=== PATIENT | male | born 1940 | race Caucasian/White ===

== ENCOUNTER 2018-10-30 07:22 | Day surgery (SDC) | payer OTHER, BC ==
[2018-10-29 12:16] VITALS: BMI 24.3
[2018-10-30] MEDS ORDERED: PROPOFOL 20 ML ONE ×2 (08:08)
[2018-10-30] MEDS ORDERED: LIDOCAINE HCL/PF 2% SDV 5ML VIAL ONE (08:29)
[2018-10-30 08:59] VITALS: TEMP 97.8
[2018-10-30 09:26] VITALS: BP 106/52; PULSE 62
--- NOTE | 2018-11-03 13:32 | PATH ---
Surgical Pathology Report Patient Name: MELISSA LANDRUM JR [facility]. Rec. #: [id number] /Age/Gender: 1940 (Age: 78) / M Account: [id number] Location: [facility] Taken: 10/30/2018 Received: 10/30/2018 Reported: 11/03/2018 Physicians: Eder Mcwilliams M.D. Specimen(s) Received A: BX POLYPOID FOLD RIGHT COLON B: BX POLYP SIGMOID COLON Clinical History Change in bowel habits Postoperative diagnosis: Diverticulosis, colon polyps Final Diagnosis A. RIGHT COLON, POLYPOID FOLD, BIOPSY: COLONIC MUCOSA SHOWING MILD SURFACE HYPERPLASTIC CHANGE. B. SIGMOID COLON, POLYP, BIOPSY: HYPERPLASTIC POLYP. Electronically Signed Delia Lennon M.D. Gross Description A. Received in formalin, labeled "biopsy polypoid fold right colon" is a schafer, irregular portion of soft tissue measuring 0.4 cm. in greatest dimension. The specimen is submitted in toto in one cassette. B. Received in formalin, labeled "biopsy polyp sigmoid colon" is a schafer, irregular portion of soft tissue measuring 0.6 cm. in greatest dimension. The specimen is submitted in toto in one cassette. 10/30/2018 saudi10/30/2018
== END 2018-10-30 09:26 | disposition home or self-care (01) ==
LOC: FASU-ENDO 07:22
PROVIDERS: ATTEND Internal Medicine Gastroenterology
PROC: 0DBK8ZX Excision of Ascending Colon, Via Natural or Artificial Opening Endoscopic, Diagnostic (ICD-10-PCS; principal; 2018-10-30 08:31)
PROC: 0DBN8ZX Excision of Sigmoid Colon, Via Natural or Artificial Opening Endoscopic, Diagnostic (ICD-10-PCS; 2018-10-30 08:31)
DX: K63.5 Polyp of colon (principal); K63.89 Other specified diseases of intestine; R19.4 Change in bowel habit; K59.09 Other constipation; K57.30 Diverticulosis of large intestine without perforation or abscess without bleeding
CPT/HCPCS: 88305-TC

== ENCOUNTER 2022-02-02 05:43 | Observation (INO) | payer OTHER, BC ==
[2022-02-02 05:54] VITALS: BMI 25.1
[2022-02-02 07:26] LABS: INR 1.02 (0.83-1.09); PROTHROMBIN TIME (PATIENT) 11.7 SEC (9.7-13.0)
[2022-02-02 07:28] LABS: EOS % 7.2 % (0-4.5); HEMATOCRIT 37.3 % (35.4-49); HEMOGLOBIN 12.8 GM/dL (11.7-16.9); MCH 31.5 pg (25.7-33.7); MCHC 34.2 g/dl (32.0-35.9); MEAN PLT VOLUME 8.8 fl (7.5-11.1); MONO % 8.3 % (3.8-10.2); NEUT % 57.5 % (42.8-82.8); PLATELET COUNT 217 10^3/uL (134-434); RBC 4.05 M/mm3 (4.00-5.60); RDW 13.6 % (11.9-15.9)
[2022-02-02 07:29] LABS: ACTIVATED PTT 29.7 SECONDS (25.2-36.5)
[2022-02-02 07:42] LABS: ALBUMIN 3.7 g/dl (3.4-5.0); CALCIUM 8.6 mg/dL (8.5-10.1)
[2022-02-02 07:43] LABS: BLOOD UREA NITROGEN 17.8 mg/dL (7-18); MAGNESIUM 2.1 mg/dL (1.8-2.4)
[2022-02-02 07:46] LABS: CREATININE 0.9 mg/dL (0.55-1.3)
[2022-02-02 07:47] LABS: BILIRUBIN,TOTAL 0.6 mg/dL (0.2-1); TOT PROT 7.2 g/dl (6.4-8.2)
[2022-02-02 09:27] LABS: PHOSPHOROUS 3.1 mg/dL (2.5-4.9)
[2022-02-02] MEDS ORDERED: ENOXAPARIN NA (PORCINE) 40 MG/0.4 ML DISP.SYRIN SQ SCH (10:00)
[2022-02-02] MEDS ORDERED: METOPROLOL TARTRATE 25 MG TABLET (FP) ONE (12:24)
[2022-02-02] MEDS ORDERED: ISOSORBIDE MONONITRATE 60 MG TAB.SR.24H (FP) PO ONE (12:25)
[2022-02-02] MEDS ORDERED: RAMIPRIL 5 MG CAPSULE ONE (12:25)
[2022-02-02] MEDS ORDERED: CLOPIDOGREL BISULFATE 75 MG TABLET (FP) ONE (12:25)
[2022-02-02] MEDS: METOPROLOL TARTRATE 25 MG TABLET (FP) PO SCH ×2 (12:31→21:45)
[2022-02-02] MEDS: ISOSORBIDE MONONITRATE 60 MG TAB.SR.24H (FP) PO SCH (12:31)
[2022-02-02] MEDS: CLOPIDOGREL BISULFATE 75 MG TABLET (FP) PO SCH (12:32)
[2022-02-02] MEDS: RAMIPRIL 5 MG CAPSULE PO SCH (12:32)
[2022-02-02] MEDS: UMECLIDINIUM/VILANTEROL (ANORO) 62.5/25 MCG INHALER IH SCH (12:32)
[2022-02-02] MEDS: ASPIRIN 81 MG CHEWABLE TABLETS PO SCH (15:08)
[2022-02-02 15:53] VITALS: RESP 18
[2022-02-02] MEDS: CALAMINE 8% TOPICAL LOTION 177 ML BOTTLE TP SCH ×2 (19:35→21:43)
[2022-02-02] MEDS ORDERED: ATORVASTATIN CA 40 MG TABLET (FP) PO SCH (22:00)
[2022-02-03 09:03] LABS: BASO % 1.2 % (0-2.0); HEMATOCRIT 40.3 % (35.4-49); HEMOGLOBIN 13.8 GM/dL (11.7-16.9); LYMPH % 18.9 % (8-40); MCH 31.7 pg (25.7-33.7); MCHC 34.3 g/dl (32.0-35.9); MEAN CELL VOLUME 92.5 fl (80-96); MEAN PLT VOLUME 8.5 fl (7.5-11.1); MONO % 8.2 % (3.8-10.2); NEUT % 67.7 % (42.8-82.8); PLATELET COUNT 219 10^3/uL (134-434); RBC 4.36 M/mm3 (4.00-5.60); WHITE BLOOD COUNT 9.1 K/mm3 (4.0-10.0)
[2022-02-03] MEDS: ISOSORBIDE MONONITRATE 60 MG TAB.SR.24H (FP) PO SCH (09:19)
[2022-02-03] MEDS: ASPIRIN 81 MG CHEWABLE TABLETS PO SCH (09:20)
[2022-02-03] MEDS: METOPROLOL TARTRATE 25 MG TABLET (FP) PO SCH (09:20)
[2022-02-03] MEDS: CALAMINE 8% TOPICAL LOTION 177 ML BOTTLE TP SCH (09:20)
[2022-02-03] MEDS: RAMIPRIL 5 MG CAPSULE PO SCH (09:20)
[2022-02-03] MEDS: CLOPIDOGREL BISULFATE 75 MG TABLET (FP) PO SCH (09:20)
[2022-02-03] MEDS: UMECLIDINIUM/VILANTEROL (ANORO) 62.5/25 MCG INHALER IH SCH (09:26)
[2022-02-03 09:41] LABS: CALCIUM 9.1 mg/dL (8.5-10.1); CHOLESTEROL 155 mg/dL (50-200); TRIGLYCERIDES 145 mg/dL (0-150)
[2022-02-03 09:42] LABS: ALBUMIN 4.2 g/dl (3.4-5.0); BLOOD UREA NITROGEN 12.4 mg/dL (7-18); LDL CHOLESTEROL (ONLY SJRH) 89 mg/dL (5-100); MAGNESIUM 2.2 mg/dL (1.8-2.4)
[2022-02-03 09:44] LABS: CREATININE 0.8 mg/dL (0.55-1.3); HDL CHOLESTEROL 45 mg/dL (40-60); PHOSPHOROUS 2.9 mg/dL (2.5-4.9)
[2022-02-03 09:45] LABS: BILIRUBIN,TOTAL 0.7 mg/dL (0.2-1); TOT PROT 8.2 g/dl (6.4-8.2)
[2022-02-03 15:06] VITALS: BP 116/67; PULSE 67; TEMP 97.7
== END 2022-02-03 17:36 | disposition home or self-care (01) ==
LOC: JER 05:43 → JERBED 07:51 → J4W 14:55
PROVIDERS: ADMIT Internal Medicine; ATTEND Internal Medicine
DX: I25.110 Atherosclerotic heart disease of native coronary artery with unstable angina pectoris (principal); I11.9 Hypertensive heart disease without heart failure; J44.9 Chronic obstructive pulmonary disease, unspecified; Z29.8 Encounter for other specified prophylactic measures; E78.5 Hyperlipidemia, unspecified; Z95.1 Presence of aortocoronary bypass graft; R06.02 Shortness of breath; I71.4 Abdominal aortic aneurysm, without rupture; E78.00 Pure hypercholesterolemia, unspecified; Z98.62 Peripheral vascular angioplasty status; Z87.891 Personal history of nicotine dependence
CPT/HCPCS: 36415; 71045-TC-FY; 80053; 80061; 82550; 83036; 83735; 84100; 84439; 84443; 84484; 85025; 85610; 85730; 93005; 93010; 93306-TC; 99285-25; C9803-CS; G0378; U0003; U0005

== ENCOUNTER 2023-09-10 11:28 | Emergency (ER) | payer OTHER, BC ==
[2023-09-10 11:44] VITALS: BP 128/66; PULSE 71; RESP 18; TEMP 98; BMI 23.6
[2023-09-10 12:54] LABS: BASO % 1.2 % (0-2.0); EOS % 3.7 % (0-4.5); HEMATOCRIT 37.6 % (35.4-49); HEMOGLOBIN 12.7 GM/dL (11.7-16.9); LYMPH % 10.6 % (8-40); MCH 32.2 pg (25.7-33.7); MCHC 33.8 g/dl (32.0-35.9); MEAN CELL VOLUME 95.3 fl (80-96); MEAN PLT VOLUME 8.1 fl (7.5-11.1); MONO % 7.5 % (3.8-10.2); PLATELET COUNT 201 10^3/uL (134-434); RBC 3.95 M/mm3 (4.00-5.60); RDW 14.2 % (11.9-15.9); WHITE BLOOD COUNT 10.9 K/mm3 (4.0-10.0)
[2023-09-10 13:40] LABS: POTASSIUM 4.5 mmol/L (3.5-5.1)
[2023-09-10 13:42] LABS: ALBUMIN 3.5 g/dl (3.4-5.0); CALCIUM 9.3 mg/dL (8.5-10.1)
[2023-09-10 13:43] LABS: BLOOD UREA NITROGEN 16.1 mg/dL (7-18); MAGNESIUM 2.2 mg/dL (1.8-2.4)
[2023-09-10 13:45] LABS: CREATININE 0.7 mg/dL (0.55-1.3)
[2023-09-10 13:47] LABS: BILIRUBIN,TOTAL 0.3 mg/dL (0.2-1); TOT PROT 7.8 g/dl (6.4-8.2)
[2023-09-10 13:51] LABS: N-TERMINAL BNP 734.4 pg/ml (5-450)
[2023-09-10] MEDS ORDERED: ALBUTEROL SO4 2.5/IPRATROPIUM 0.5 INH SOL 3 ML VIAL.NEB. NEB ONE (13:54)
[2023-09-10] MEDS ORDERED: methylPREDNISolone NA SUCC 125 MG/2 ML VIAL ONE (13:55)
[2023-09-10] MEDS: ALBUTEROL SO4 2.5/IPRATROPIUM 0.5 INH SOL 3 ML VIAL.NEB. NEB ONE (14:00)
[2023-09-10] MEDS: methylPREDNISolone NA SUCC 125 MG/2 ML VIAL IVPB ONE (14:00)
[2023-09-10] MEDS: ACETAMINOPHEN 1000 MG/100 ML BAG IVPB ONE (14:39)
[2023-09-10] MEDS: METOCLOPRAMIDE HCL INJECTION 10 MG/2 ML VIAL IVPB ONE (14:39)
== END 2023-09-10 20:24 | disposition home or self-care (01) ==
LOC: JER 11:28
PROC: 3E033GC Introduction of Other Therapeutic Substance into Peripheral Vein, Percutaneous Approach (ICD-10-PCS; principal; 2023-09-10)
PROC: 3E0F7GC Introduction of Other Therapeutic Substance into Respiratory Tract, Via Natural or Artificial Opening (ICD-10-PCS; 2023-09-10)
DX: R06.02 Shortness of breath (principal); R05.9 Cough, unspecified; R79.89 Other specified abnormal findings of blood chemistry; Z20.822 Contact with and (suspected) exposure to COVID-19
CPT/HCPCS: 0241U-QW; 36415; 71045-TC-FY; 71275-TC; 80053; 83735; 83880; 84484; 85025; 93005; 93010; 94640; 96374; 99285-25; Q9967